=== PATIENT | female | born 1955 | race Caucasian/White ===

== ENCOUNTER 2022-05-23 15:53 | Outpatient (CLI) | payer MEDICARE, SELFPAY ==
--- NOTE | ~2022-05-23 | DEXA_ITS ---
Bone Density Report Name: DARA GLEZ Age: 66 Sex: Female Ethnicity: White Date of : 1955 Indication: postmenopausal; screening for osteoporosis; Referring Provider: ZEENAT, BITA Cardoso Study: Bone densitometry was performed. Exam Date: May 23, 2022 Accession number: [id number] Bone Density: Region BMD T-score Z-score Classification AP Spine(L1-L4) 0.865 -1.7 0.2 Osteopenia Femoral Neck (Left) 0.628 -2.0 -0.4 Osteopenia Total Hip (Left) 0.772 -1.4 -0.1 Osteopenia Femoral Neck (Right) 0.642 -1.9 -0.3 Osteopenia Total Hip (Right) 0.760 -1.5 -0.2 Osteopenia Total Hip Mean 0.766 -1.5 -0.2 Osteopenia World Health Organization criteria for BMD impression classify patients as: Normal (T-score at or above -1.0), Osteopenia (T-score between -1.0 and -2.5), or Osteoporosis (T-score at or below -2.5). 10-year Fracture Risk(1): Major Osteoporotic Fracture 11% Hip Fracture 1.6% Reported Risk Factors: [place] (), Neck BMD=0.628, BMI=25.7 (1) FRAX(R) Version 3.08. Fracture probability calculated for an untreated patient. Fracture probability may be lower if the patient has received treatment. Clinical Information Provided by Patient: Has used the following medications: Calcium Patient maximum height was 62 Menopause Age: 46 Drinks caffeinated beverages Onset of menses at age 13 Number of children 2 Impression: The patient has low bone mass, based on the Left Femoral Neck T-score. The patient has an estimated ten-year risk of hip fracture of 1.6% and an estimated ten-year risk of major fracture of 11%, based on the WHO FRAX algorithm. Discussion: BONE DENSITY IS LOW AT ONE OR MORE SKELETAL SITES. This patient's lowest T-score is low at one or more skeletal sites. It meets the World Health Organization's (WHO) criteria for ?low bone mass? (T-score between -1.0 and -2.5). The patient's 10-year risk of fracture as calculated by FRAX is less than the threshold where pharmacological therapy is recommended by the National Osteoporosis Foundation (NOF). However, all treatment decisions require clinical judgment and consideration of individual patient factors, including patient preferences, comorbidities, previous drug use, risk factors not captured in the FRAX model (e.g., frailty, falls, vitamin D deficiency, increased bone turnover, interval significant decline in bone density) and possible under or overestimation of fracture risk by FRAX. The patient should follow a healthful lifestyle (good nutrition with adequate calcium and vitamin D, and appropriate weight-bearing exercise). Follow-Up: Consider repeating this study in 2 to 3 years to reassess this patient's status, or sooner if there is some new clinical indication. Reported by: SHAYNA on 05/23/2022 4:23:00 PM.
--- NOTE | ~2022-05-23 | MM_ITS ---
EXAMINATION: MM screening jo-ann BI w cathleen HISTORY: Screening mammogram TECHNIQUE: Craniocaudal and mediolateral oblique 3-D tomosynthesis images were obtained and synthetic 2-D images were generated. CAD analysis was submitted and interpreted. COMPARISON: 10/28/2018, 12/21/2016 bilateral screening mammogram examinations BREAST PARENCHYMAL COMPOSITION: There are scattered areas of fibroglandular density. FINDINGS: There is no evidence of suspicious mass, calcification, or architectural distortion to sugg est malignancy in either breast. There has been no suspicious interval change. IMPRESSION: 1. No mammographic evidence of malignancy. 2. Recommend routine screening mammography in one year. BI-RADS Category 1: Negative Reviewed, dictated and finalized at location A.
== END 2022-05-23 15:54 | disposition home or self-care (01) ==
PROVIDERS: PCP Physician Assistant Medical; Visit Provider Physician Assistant Medical
DX: Z12.31 Encounter for screening mammogram for malignant neoplasm of breast (principal); Z78.0 Asymptomatic menopausal state; M81.0 Age-related osteoporosis without current pathological fracture; M85.88 Other specified disorders of bone density and structure, other site; M85.851 Other specified disorders of bone density and structure, right thigh; M85.852 Other specified disorders of bone density and structure, left thigh
CPT/HCPCS: 77063; 77067; 77080

== ENCOUNTER 2022-08-09 11:07 | Outpatient (CLI) | payer MEDICARE, SELFPAY ==
[2022-08-09 19:18] LABS: Vitamin D 25 Hydroxy 38.4 ng/mL
[2022-08-09 20:03] LABS: Hepatitis C Virus Antibody Negative (Negative)
== END 2022-08-09 11:08 | disposition home or self-care (01) ==
PROVIDERS: PCP Family Medicine; Visit Provider Family Medicine
DX: Z78.0 Asymptomatic menopausal state (principal); Z11.59 Encounter for screening for other viral diseases; M85.80 Other specified disorders of bone density and structure, unspecified site
CPT/HCPCS: 36415; 82306; 86803

== ENCOUNTER 2023-07-24 08:32 | Outpatient (CLI) | payer MEDICARE, SELFPAY ==
--- NOTE | ~2023-07-24 | XR_ITS ---
Left elbow Technique: AP, oblique, and lateral views were obtained. Clinical History: Pain Findings: No acute fracture or dislocation is seen. Osseous alignment is anatomic. Joint spaces are p reserved. There is no displacement of the fat pads, and soft tissues are unremarkable. Impression: Unremarkable radiographs. Reviewed, dictated and finalized at location . [address] [facility] Impression: Unremarkable radiographs.
== END 2023-07-24 08:33 | disposition home or self-care (01) ==
LOC: ANHASCIMG 08:33
PROVIDERS: PCP Family Medicine; Visit Provider Nurse Practitioner Family
DX: S59.902A Unspecified injury of left elbow, initial encounter (principal)
CPT/HCPCS: 73080

== ENCOUNTER 2023-10-10 08:43 | Outpatient (CLI) | payer MEDICARE, SELFPAY ==
--- NOTE | ~2023-10-10 | MM_ITS ---
EXAMINATION: MM screening jo-ann BI w cathleen HISTORY: Screening TECHNIQUE: Craniocaudal and mediolateral oblique 3-D tomosynthesis images were obtained and synthetic 2-D images were generated. CAD analysis was submitted and interpreted. COMPARISON: Comparison to multiple prior studies sequentially, with oldest reviewed study dated 12/21. BREAST PARENCHYMAL COMPOSITION: Breast composed of scattered areas of fibroglandular density FINDINGS: There is no evidence of suspicious mass, calcification, or architectural distortion to sugg est malignancy in either breast. There has been no suspicious interval change. IMPRESSION: 1. No mammographic evidence of malignancy. 2. Recommend routine screening mammography in one year. BI-RADS Category 1: Negative Reviewed, dictated and finalized at location A. OMER GREETER
== END 2023-10-10 08:44 | disposition home or self-care (01) ==
LOC: ANHIMG 08:48
PROVIDERS: PCP Family Medicine; Visit Provider Family Medicine
DX: Z12.31 Encounter for screening mammogram for malignant neoplasm of breast (principal)
CPT/HCPCS: 77063; 77067

== ENCOUNTER 2023-11-21 07:47 | Day surgery (SDC) | payer MEDICARE, SELFPAY ==
[2023-10-31 15:00] VITALS: BMI 24.3
[2023-11-06 11:19] VITALS: BMI 23.8
[2023-11-21 08:49] VITALS: BP 138/95; PULSE 60; RESP 16; TEMP 36.2; O2SAT 100; BMI 22.9
[2023-11-21] MEDS: LACTATED RINGERS 1,000 ML 150 ML IV CONT (09:03)
--- NOTE | 2023-11-21 09:08 | PM.HPGS ---
History of Present Illness History of Present Illness Consent: Risks, benefits, and alternatives have been discussed and questions answered. Patient agrees to proceed with procedure. Chief complaint: Fam.HX of Malignant Neoplasm of Digestive Organs Narrative: Philly Amaro is a 68 year old female presents for screening colonoscopy. Patient states that her current weight appetite and bowel movements are normal. She denies abdominal pain. She has had no bleeding. Patient does have a history of a colon polyp identified at time of colonoscopy many years ago in 2013. Exam in 2019 was unremarkable. Family history is significant that her mother had a small bowel tumor that was resected. Review of Systems Review of Systems: Review of systems noncontributory. [facility] Surgical History Surgical History History of appendectomy Family History Family History Father Hypertension Cerebrovascular accident, Onset Age: 64 Mother Cerebrovascular accident, Onset Age: 87 Carcinoma of colon, Onset Age: 55 Sibling Colon polyp Other Depression Family history of malignant neoplasm of breast Social History Social History (Updated 10/30/23 @ 09:39 by Lyn Becerra MA) Smoking status: Former smoker Tobacco type: cigarettes Smoking end date: 09/10/81 Alcohol intake: current Substance use: never Substance use type: does not use Lack of Transportation: No Lack of Food: Never True Current Housing: I Have Housing Difficulty Paying Gas/Electric Bills: No Difficulty Paying for Meds: No Currently Unemployed: No Education: Bachelor's Degree Difficulty w/ Childcare or Family Care: No Living arrangements: with family Spiritual care concerns: No Meds Home Medications and Allergies Home Medications Medication Instructions Recorded Confirmed Type fluoxetine 10 mg capsule 10 mg PO DAILY #90 caps 10/30/23 11/21/23 Rx levothyroxine 50 mcg tablet See Rx Instructions .Route 11/05/23 11/21/23 Rx .COMPLEX #90 tabs Allergies Allergy/AdvReac Type Severity Reaction Status Date / Time Sulfa (Sulfonamide Allergy Unknown Rash Verified 11/21/23 08:41 Antibiotics) Vital Signs Vital Signs - 24 hr 11/21/23 08:49 Temperature 97.2 F L Pulse Rate 60 Respiratory Rate 16 Blood Pressure 138/95 H Pulse Oximetry 100 Oxygen Delivery Room Air Exam Narrative: Physical exam reveals patient to be alert. Signs stable. HEENT exam is unremarkable. Patient is anicteric. Lungs are clear to auscultation and to percussion. Is without murmur or extra sounds. Abdomen bowel sounds are present soft nontender with no organomegaly. Digital external rectal exam normal. Assessment and Plan Assessment and plan (1) Colon polyps: Qualifiers: Colon polyp type: unspecified Colon location: unspecified part of colon Qualified Code(s): K63.5 - Polyp of colon Code(s): K63.5 - Polyp of colon Status: Acute Assessment and Plan: Patient has a history of colon polyps 10 years ago. Most recent exam was unremarkable 5 years ago. Family history is significant mother had a small bowel carcinoma resected. This specifics on this are not available for review
--- NOTE | 2023-11-21 09:19 | P.PNAN_ITS ---
Anes - Initial Pre Proc Eval Procedure: Operation Date: 11/21/23 10:00 Proposed Procedures p Colonoscopy - Jimbo Rebolledo MD Date/Time: 11/21/23 09:19 Surgeon: Jimbo Rebolledo MD Pre Op Diagnosis: Fam.HX of Malignant Neoplasm of Digestive Organs Patient Data Age: 68 Gender: F Height: 1.57 m Weight: 57 kg Last Vital Signs Temp 36.2 C L 11/21/23 08:49 Pulse 60 11/21/23 08:49 Resp 16 11/21/23 08:49 BP 138/95 H 11/21/23 08:49 Pulse Ox 100 11/21/23 08:49 O2 Del Method Room Air 11/21/23 08:49 Allergies Allergy/AdvReac Type Severity Reaction Status Date / Time Sulfa (Sulfonamide Allergy Unknown Rash Verified 11/21/23 08:41 Antibiotics) Home Medications Medication Instructions Recorded Confirmed Type fluoxetine 10 mg capsule 10 mg PO DAILY #90 caps 10/30/23 11/21/23 Rx levothyroxine 50 mcg tablet See Rx Instructions .Route 11/05/23 11/21/23 Rx .COMPLEX #90 tabs Patient hx anesthesia problems: none Family hx anesthesia problems: none Results Review: All pre-operative results and documents have been reviewed as part of the pre- operative evaluation. [facility] Surgical History Surgical History History of appendectomy Family History Family History Father Hypertension Cerebrovascular accident, Onset Age: 64 Mother Cerebrovascular accident, Onset Age: 87 Carcinoma of colon, Onset Age: 55 Sibling Colon polyp Other Depression Family history of malignant neoplasm of breast Social History Social History Smoking status: Former smoker Tobacco type: cigarettes Smoking end date: 09/10/81 Alcohol intake: current Substance use: never Substance use type: does not use Lack of Transportation: No Lack of Food: Never True Current Housing: I Have Housing Difficulty Paying Gas/Electric Bills: No Difficulty Paying for Meds: No Currently Unemployed: No Education: Bachelor's Degree Difficulty w/ Childcare or Family Care: No Living arrangements: with family Spiritual care concerns: No Anes - Eval Final PreProcedure Day of Procedure 11/21/23 09:19 Patient weight: normal Heart: regular rate and rhythm Lungs: clear to auscultation Airway: Mallampati scale class II Neurological: alert and oriented Last oral intake: >/= 8 hours ASA classification: II Emergent: no Anesthetic plan: proceed Anesthesia type and monitoring: general GIVS and standard monitoring Results Review: All pre-operative results and documents have been reviewed as part of the pre- operative evaluation. Informed Consent: The patient's anesthetic plan and its attendant risks and benefits were discussed with the patient/family/POA. Questions were solicited and answers provided to the satisfaction of the patient/family/POA.
[2023-11-21 10:08] VITALS: BP 146/75; PULSE 62; RESP 14; O2SAT 99
[2023-11-21 10:16] VITALS: BP 155/84; PULSE 55; RESP 18; O2SAT 99
[2023-11-21 10:26] VITALS: BP 152/79; PULSE 52; O2SAT 99
--- NOTE | 2023-11-21 11:04 | WPDANESPN ---
Anes - Prog Note Post-Op Date/Time: 11/21/23 11:04 Cardiovascular status: normal Respiratory status: normal Airway patency: baseline Mental status: baseline Post-Op hydration status: normal Vital Signs: Last Vital Signs Temp 36.2 C L 11/21/23 08:49 Pulse 52 L 11/21/23 10:26 Resp 18 11/21/23 10:16 BP 152/79 H 11/21/23 10:26 Pulse Ox 99 11/21/23 10:26 O2 Del Method Room Air 11/21/23 10:26 Pain Score (VAS): 0 I/O: Intake & Output 11/20/23 11/21/23 11/21/23 23:59 07:59 15:59 Intake Total 500 Balance 500 Patient Feedback: Patient satisfied with anesthetic care.
== END 2023-11-21 10:46 | disposition home or self-care (01) ==
PROVIDERS: PCP Family Medicine; Visit Provider Internal Medicine Gastroenterology
PROC: 0DJD8ZZ Inspection of Lower Intestinal Tract, Via Natural or Artificial Opening Endoscopic (ICD-10-PCS; CPT 45378; principal; 2023-11-21 10:00)
DX: Z12.11 Encounter for screening for malignant neoplasm of colon (principal); Z86.010 Personal history of colon polyps; K64.8 Other hemorrhoids
CPT/HCPCS: 45378

== ENCOUNTER 2024-03-03 15:10 | Outpatient (CLI) | payer MEDICARE, SELFPAY ==
--- NOTE | ~2024-03-03 | DEXA_ITS ---
? Bone Density Report? Name:? DARA GLEZ Patient ID:??? [id number] Age:? 68 Sex:? Female Ethnicity:? White Date of : 1955 Indication: postmenopausal; screening for osteoporosis; Referring Provider: BARTOLO MICHELLE Study: Bone densitometry was performed. Exam Date: March 03, 2024 Accession number: [id number] Bone Density: Region? BMD??? T-score? Z-score?? Classification AP Spine(L1-L4)? 0.862?? -1.7?0.3? Osteopenia Femoral Neck (Left)? 0.585?? -2.4? -0.7? Osteopenia Total Hip (Left)? 0.736?? -1.7? -0.3? Osteopenia Femoral Neck (Right)? 0.635?? -1.9? -0.3? Osteopenia Total Hip (Right)? 0.718?? -1.8? -0.5? Osteopenia Femoral Neck Mean? 0.610?? -2.2? -0.5? Osteopenia Total Hip Mean? 0.727?? -1.8? -0.4? Osteopenia World Health Organization criteria for BMD impression classify patients as: Normal (T-score at or above -1.0), Osteopenia (T-score between -1.0 and -2.5), or Osteoporosis (T-score at or below -2.5). 10-year Fracture Risk(1): Major Osteoporotic Fracture? 12% Hip Fracture? 2.7% Reported Risk Factors: [place] (), Neck BMD=0.585, BMI=22.9 (1) FRAX? Version 3.08. Fracture probability calculated for an untreated patient. Fracture probability may be lower if the patient has received treatment. Clinical Information Provided by Patient: Patient maximum height was 62.0 Menopause Age: 46 No regular weight bearing exercise Drinks caffeinated beverages Onset of menses at age 14 Number of children 2 Impression: The patient has low bone mass, based on the Left Femoral Neck T- score. Discussion: BONE DENSITY IS LOW AT ONE OR MORE SKELETAL SITES. This patient's lowest T-score is low at one or more skeletal sites.? It meets the World Health Organization's (WHO) criteria for ?low bone mass?? (T-score between -1.0 and -2.5).? The patient's 10-year risk of fracture as calculated by FRAX is less than the threshold where pharmacological therapy is recommended by the National Osteoporosis Foundation (NOF).? However, all treatment decisions require clinical judgment and consideration of individual patient factors, including patient preferences, comorbidities, previous drug use, risk factors not captured in the FRAX model (e.g., frailty, falls, vitamin D deficiency, increased bone turnover, interval significant decline in bone density) and possible under or overestimation of fracture risk by FRAX. The patient should follow a healthful lifestyle (good nutrition with adequate calcium and vitamin D, and appropriate weight-bearing exercise). Follow-Up: Consider repeating this study in 2 to 3 years to re
== END 2024-03-03 15:11 | disposition home or self-care (01) ==
LOC: CHSIMG 15:13
PROVIDERS: PCP Family Medicine; Visit Provider Student in an Organized Health Care Education/Training Program
DX: Z78.0 Asymptomatic menopausal state (principal); M85.89 Other specified disorders of bone density and structure, multiple sites
CPT/HCPCS: 77080

== ENCOUNTER 2024-05-16 08:53 | Emergency (ER) | payer MEDICARE, SELFPAY ==
--- NOTE | ~2024-05-16 | XR_ITS ---
Right ankle Technique: AP, oblique, and lateral views were obtained. Clinical History: Pain and swelling Findings: There is acute transverse, nondisplaced fracture the base of the fifth metatarsal. Ankle mo rtise and other visualized joint spaces are preserved. Lateral soft tissue swelling noted. Impression: Acute, transverse, nondisplaced fracture the base the fifth metatarsal. Lateral soft tissue swelling. Reviewed, dictated and finalized at location . Impression: Acute, transverse, nondisplaced fracture the base the fifth metatarsal. Lateral soft tissue swelling.
--- NOTE | ~2024-05-16 | XR_ITS ---
Right foot Technique: AP, oblique, and lateral views were obtained. Clinical History: Pain Findings: There is acute, transverse, nondisplaced fracture the base the fifth metatarsal.. Joint spa topher are preserved without erosive or degenerative change. Soft tissues are unremarkable. Impression: Acute, transverse, nondisplaced fracture the base of the fifth metatarsal. Reviewed, dictated and finalized at location . Impression: Acute, transverse, nondisplaced fracture the base of the fifth metatarsal.
[2024-05-16 09:08] VITALS: BP 109/73; PULSE 73; RESP 16; TEMP 36.2; O2SAT 99
--- NOTE | 2024-05-16 09:15 | ED.LOWEXIN ---
HPI - Extremity Injury (Lower) General Chief Complaint: Extremity Injury, Lower Stated Complaint: Injured Right Ankle Time Seen by Provider: 05/16/24 09:18 Source: patient, RN notes reviewed and old records reviewed Mode of arrival: ambulatory Limitations: no limitations History of Present Illness HPI Narrative: 68-year-old female presents to the [facility] with complaints of right foot and ankle pain since yesterday. Patient states that she fell walking up her steps. Bruising swelling noted to the lateral foot and ankle Related Data Home Medications Medication Instructions Recorded Confirmed calcium carbonate 600 mg PO DAILY 03/04/24 05/16/24 cholecalciferol (vitamin D3) 25 25 mcg PO DAILY 03/04/24 05/16/24 mcg (1,000 unit) capsule aspirin 81 mg tablet 81 mg PO DAILY 05/16/24 05/16/24 multivitamin 1 tablet PO DAILY 05/16/24 05/16/24 Allergies Allergy/AdvReac Type Severity Reaction Status Date / Time Sulfa (Sulfonamide Allergy Unknown Rash Verified 05/16/24 09:05 Antibiotics) Review of Systems Review of Systems: All systems reviewed & are unremarkable except as noted in HPI and below Constitutional: Constitutional: Reports no additional constitutional complaints Eyes: Eyes: Reports no additional eye complaints ENT: Reports system reviewed and no additional complaints, except as documented Cardiovascular: Cardiovascular: Reports no additional cardiovascular complaints, Denies chest pain and Denies dyspnea Respiratory: Respiratory: Reports no additional respiratory complaints, Denies chest congestion, Denies cough and Denies dyspnea Gastrointestinal: Gastrointestinal: Reports no additional gastrointestinal complaints, Denies abdominal pain, Denies nausea and Denies vomiting Musculoskeletal: Musculoskeletal: Reports as per HPI Integumentary/Breasts: Skin/Breast: Reports system reviewed and no additional complaints, except as docu Neurologic: Reports system reviewed and no additional complaints, except as documented Psychiatric: Psychiatric: Reports no additional psychiatric complaints Allergic/Immunologic: Allergic/Immunologic: Reports no additional allergic/immunologic complaints [facility] Past Medical History Medical History Fracture of fifth metatarsal bone of right foot Surgical History Surgical History History of appendectomy Family History Family History Father Hypertension Cerebrovascular accident, Onset Age: 64 Mother Cerebrovascular accident, Onset Age: 87 Small intestine cancer Sibling Colon polyp Other Depression Family history of malignant neoplasm of breast Social History Social History Smoking status: Former smoker Tobacco type: cigarettes Smoking end date: 09/10/81 Alcohol intake: current Substance use: never Substance use type: does not use Lack of Transportation: No Lack of Food: Never True Current Housing: I Have Housing Difficulty Paying Gas/Electric Bills: No Difficulty Paying for Meds: No Currently Unemployed: No Education: Bachelor's Degree Difficulty w/ Childcare or Family Care: No Living arrangements: with family Spiritual care concerns: No Comments At the time of my signature, I reviewed and agree with the nursing past medical, surgical, social, and family history. There is no relevant family history pertinent to the patient complaint. Exam Const: General: cooperative, healthy appearing, comfortable, no acute distress, well developed, alert and well nourished Nutritional Appearance: well nourished Orientation/consciousness: patient oriented x3 Limitations: no limitations HENMT: Head: normal to inspection Ears: hearing grossly normal bilaterally and external ears normal Face/Nose/Sinus: Normal claims attorney
== END 2024-05-16 10:10 | disposition home or self-care (01) ==
PROVIDERS: Emergency Provider Nurse Practitioner; PCP Family Medicine
DX: S92.354A Nondisplaced fracture of fifth metatarsal bone, right foot, initial encounter for closed fracture (principal); W10.9XXA Fall (on) (from) unspecified stairs and steps, initial encounter; S93.401A Sprain of unspecified ligament of right ankle, initial encounter; Z87.891 Personal history of nicotine dependence; Z79.82 Long term (current) use of aspirin
CPT/HCPCS: 29515; 73610; 73630; 99214; G0463